=== PATIENT | female | born 1950 | race Caucasian/White ===

== ENCOUNTER 2016-12-20 09:06 | Emergency (ER) | payer MEDICARE, BC ==
[2016-12-20 09:28] VITALS: BP 121/68
--- NOTE | 2016-12-20 09:49 | ERNOTE ---
Medical Problem HPI - General Chief Complaint: General Assessment Time Seen by Provider: 12/20/16 09:32 Source: patient - Immun/Allergies/Home Medications Immunizations: IMMUNIZATION HX Immunizations Up to Date Yes History of Influenza Vaccine No Hx Pneumococcal Vaccination No Allergies/Adverse Reactions: Allergies codeine Allergy (Verified 12/20/16 09:28) penicillin G Allergy (Verified 12/20/16 09:28) Home Medications: HOME MEDICATIONS Dextroamphetamine/Amphetamine [Adderall 10 mg Tablet] 10 mg PO DAILY 08/02/16 [ Last Taken Unknown] Gabapentin 300 mg PO DAILY 08/02/16 [Last Taken Unknown] Gabapentin [Neurontin] 600 mg PO HS 08/02/16 [Last Taken Unknown] Vancomycin HCl [Vancomycin] 10 ml PO QID #560 ml 08/02/16 [Last Taken Unknown] Zolpidem Tartrate [Ambien] 10 mg PO HS PRN 08/02/16 [Last Taken Unknown] clonazePAM [Klonopin] 0.5 mg PO BID 08/02/16 [Last Taken Unknown] - History of Present History Narrative: Patient has a known history of chronic C. difficile infection. She has had 2 fecal implants in the past to try to correct his bacterial balance in her colon. She was started back on antibiotics for a urinary tract infection and started to develop diarrhea again. She is here for variety of tests to make sure that she does not have a C. difficile infection. Timing: constant Severity: mild Modifying Factors - (Worsens): Present: other - antibiotics Review of Systems - Review of Systems Constitutional: Present: See HPI EYE: Present: no symptoms reported ENT: Present: no symptoms reported Respiratory: Present: no symptoms reported Cardiology: Present: no symptoms reported Gastrointestinal/Abdominal: Present: diarrhea Genitourinary: Present: no symptoms reported Musculoskeletal: Present: no symptoms reported Skin: Present: no symptoms reported Neurological: Present: no symptoms reported Endocrine: Present: no symptoms reported Hematologic/Lymphatic: Present: no symptoms reported Psych: Present: no symptoms reported - Patient's Past Medical History Patient History - Medical: Anxiety, Other - resistant c. diff Patient History - Cardiac/Respiratory: No pertinent hx Patient History - Cancer: Other Patient History - Surgical Procedures: Hysterectomy, T & A, Other Patient History - Other: None - Social History Living Situations: alone Abuse History: No History of abuse Psych History: Hx of Anxiety Smoking Status: Never smoker Do you dip or chew tobacco: No Alcohol Use: none Drug Use: none - Immunizations Immunizations Up to Date: Yes Hx Pneumococcal Vaccination: No History of Influenza Vaccine: No Physical Exam - Physical Exam General Appearance: Present: wd/wn, alert, no apparent distress Eye Exam: Normal inspection: bilateral, PERRL: bilateral Ears, Nose, Throat: Present: normal ENT inspection, H, normal pharynx Neck: Present: normal inspection, nontender Respiratory: Present: no respiratory distress, normal breath sounds, no accessory muscle use, chest nontender, lungs clear Cardiovascular/Chest: Present: regular rate, rhythm, no murmur, normal peripheral pulses Gastrointestinal/Abdominal: Present: normal bowel sounds, nontender, nondistended, soft, no organomegaly Rectal Exam: Present: deferred Back Exam: Present: normal inspection, normal range of motion Extremity Exam: Present: normal inspection, non-tender, no edema, normal range of motion Neurological Exam: Present: alert, oriented, normal mood/affect Skin Exam: Present: normal color, warm/dry Lymphatic Exam: Present: no adenopathy ED Progress - Results and Orders Patient's Lab Results:: I have reviewed the patient's lab results. - Vital Signs Patient's Vital Signs:: I have reviewed the patient's vital signs. Vital Signs: Vital Signs 12/20/16 09:20 Temperature 37.0 C Pulse Rate 98 Respiratory 15 Rate Blood Pressure 121/68 O2 Sat by Pulse 100 Oximetry - Progress/Reassessment Chief Complaint: General Assessment Progress:: Unchanged Departure - Departure Clinical Impression: Diarrhea Qualifiers: Diarrhea type: unspecified type Qualified Code(s): R19.7 - Diarrhea, unspecified Instructions: Chronic Diarrhea Referrals: Mervat Summers, [employer] [Primary Care Provider] -
--- OUTSIDE RECORDS SUMMARY | 2016-12-20 09:54 | XMS REPORT | Continuity of Care Document ---
:1950 Author Organization [facility] [place] [address] Care Team Providers Name Role Phone Unavailable Primary Care Provider Unavailable Source Comments This disclosure is being made pursuant to the [employer] program and maynot contain all information available regarding this patient.[facility] Active Allergies and Adverse Reactions Not on File Current Medications Be aware that medications may not be up to date as of this document. Alwaysverify current medications with the patient. Not on file Active Problems Not on file Social History Tobacco Use Types Packs/Day Years Used Date Never Assessed Plan of Care Health Maintenance Due Date Last Done Comments Retired-Pertussis Vaccine Adult 1969 Retired-Tetanus Vaccine Adult 1969 Mammogram 1990 Colonoscopy 2000 Well Adult Visit 2000 Zoster Vaccine 60+ 2010 Bone Density 2015 Retired-Pneumococcal 23 Vaccine-65+ yo 2015 Retired-INFLUENZA VACCINE 05/14/2015 Results from Last 3 Months Not on file
--- OUTSIDE RECORDS SUMMARY | 2016-12-20 09:54 | XMS REPORT | Continuity of Care Document ---
:1950 Author Organization [facility] ([facility]) Address [address] [place] [address] Phone [phone] Care Team Providers Name Role Phone Mervat Summers Primary Care Provider [phone] Source Comments This disclosure is being made pursuant to the Care Everywhere program, applicable federal and state laws, and may not contain all informaitonavailable regarding this patient.[facility] ([facility]) Active Allergies and Adverse Reactions Allergen Noted Date Severity Reactions Comments Codeine Dizziness Penicillins 03/10/2010 Rash Current Medications Prescription Sig. Disp. Refills Start Date End Date Status estradiol (ESTRACE) insert 1 42.5 g 11 01/18/2014 Active 0.01 % vaginal cream Applicatorful vaginally every 48 hours. Indications: ATROPHIC VAGINITIS ASSOCIATED WITH MENOPAUSE silver sulfADIAZINE 1 apply topically at 30 g 1 2014 Active % cream bedtime. Indications: vaginitis history and vulvar erythema clonazePAM 0.5 mg Take 0.5 mg by mouth Active tablet at bedtime. OTHER Progesterone oil Active vaginally, twice per week gabapentin 300 mg Take 1 Cap by mouth 3 270 Cap 2 10/31/2014 Active capsule times daily. Indications: NEUROPATHIC PAIN dextroamphetamine-amp Take 30 mg by mouth Active hetamine (ADDERALL) daily. 30 mg tablet traMADol 50 mg tablet Take 50 mg by mouth 4 Active times daily as needed. omeprazole 20 mg XR Take 20 mg by mouth Active tablet daily. lactobacillus Take 1 capsule by Active rhamnosus (gg) mouth daily. 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 (Primary Dx) 11/05/2016 Telephone Med Ez Clark, Disease 10/23/2016 Office Visit Med Ez Clark, Dx: 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 (Primary Dx) Social History Tobacco Use Types Packs/Day Years Used Date Never Smoker Smokeless Tobacco: Never Used Alcohol Use Drinks/Week oz/Week Comments Yes 2 Glasses of wine 2 Cans of beer Last Filed Vital Signs Vital Sign Reading Time Taken Blood Pressure 146/87 11/20/2016 11:23 AM VAMP MAKER Pulse 97 11/20/2016 11:23 AM VAMP MAKER Temperature 36.9 C (98.4 F) 11/20/2016 11:23 AM VAMP MAKER Respiratory Rate 16 11/20/2016 11:23 AM VAMP MAKER Height 1.473 m (4' 10") 10/23/2016 2:52 PM VAMP MAKER Weight 50.803 kg (112 lb) 10/23/2016 2:52 PM VAMP MAKER Body Mass Index 23.41 10/23/2016 2:52 PM VAMP MAKER Oxygen Saturation 97% 04/21/2011 3:30 PM CDT Plan of Care Health Maintenance Due Date Last Done Comments HCV Screening 1950 Hepatitis B Vaccine (1 of 3 - Primary Series) 1950 Tdap Vaccine 1961 Lipid Disorder Screening 1968 Td Vaccine 1968 Mammogram 1990 Colonoscopy 03/05/2000 Zoster Vaccine 2010 Osteoporosis Screening (DXA Bone Density) 2015 Pneumococcal Vaccine (1 of 2 - PCV13) 2015 Influenza Vaccine: Seasonal Completed Procedures from Last 3 Months Procedure Name Priority Date/Time Associated Diagnosis Comments ABSTRACTED BY Routine 11/25/2016 1:26 Recurrent colitis Results for this BILLING STAFF - NW PM CDT due to Clostridium procedure are in difficile the results section. ABSTRACTED BY Routine 10/23/2016 3:40 Recurrent colitis Results for this BILLING STAFF - NW PM VAMP MAKER due to Clostridium procedure are in difficile the results section. Results from Last 3 Months OTHER PROCEDURE (11/25/2016 1:26 PM) Ez Gonzales MD 11/25/20161:26 PM Procedure Note Fecal Microbiota Transplant Procedure:Fecal Microbiota Transplantation Indication: Recurrent Clostridium difficile colitis Stool donor:[employer] specimen #[id number] Referring Provider: Jose Javier MD 66 year old woman with recurrent C. difficile colitis, resulting in 1 hospitalization. She underwent fecal transplantation on 10/23/16, but was hospitalized again ~1 week later for C. difficile infection. In preparation for the procedure, vancomycin was discontinued yesterday and the patient took omeprazole 20 mg last night and again this morning. After written informed consent was obtained from the patient by me, the right naris was anesthetized with 1.5 mL 4% lidocaine with 1% phenylephrine. A Kangaroo Feeding Tube with Integrated Real-Time Imaging Technology was then placed by me. The stomach rugae were visualized (image uploaded). I injected 30 cc of donor stool solution into the tube, followed by 25 cc of water. The tube was then removed. The patient tolerated the procedure well. The patient will call me with any problems and with a progress report in one week. Post-procedure instructions were provided to the patient. Ez Espitia MD, MPH, [facility] Clinical Professor of Internal Medicine, Division of Infectious Diseases ? ? [email or web address] OTHER PROCEDURE (10/23/2016 3:40 PM) Ez Gonzales MD 10/23/20163:40 PM Procedure Note Fecal Microbiota Transplant Procedure:Fecal Microbiota Transplantation Indication:Recurrent Clostridium difficile colitis Stool donor:[employer] specimen #[id number] Referring Provider: 66 year old woman with recurrent C. difficile colitis, resulting in 1 hospitalization. In preparation for the procedure, vancomycin was discontinued yesterday and the patient took omeprazole 20 mg last night and again this morning. After written informed consent was obtained from the patient by me, the right naris was anesthetized with 1.5 mL 4% lidocaine with 1% phenylephrine. A Kangaroo Feeding Tube with Integrated Real-Time Imaging Technology was then placed by me. The stomach rugae were visualized (image uploaded). I injected 30 cc of donor stool solution into the tube, followed by 25 cc of water. The tube was then removed. The patient tolerated the procedure well. The patient will call me with any problems and with a progress report in one week. Post-procedure instructions were provided to the patient. Ez Espitia MD, MPH, [facility] Clinical Professor of Internal Medicine, Division of Infectious Diseases [id number] [id number]?[email or web address]? [email or web address]
[2016-12-20 09:56] LABS: Hematocrit 35.6 % (37.0-47.0); Hemoglobin 11.1 gm/dL (12.5-16.0); Mean Cell Volume 93.2 fl (78-100); Mean Corpuscular Hemoglobin 29.1 pg (27-31); Mean Corpuscular Hgb Conc 31.2 g/dl (32-36); Mean Platelet Volume 8.1 fl (6.0-9.5); Neutrophil # 1.2 K/mm3 (1.3-6.0); Neutrophil % 37.6 % (42-75.0); Platelet Count 283 K/mm3 (150-450); Red Blood Count 3.82 M/mm3 (4.2-5.4); Red Cell Distribution Width 14.4 % (11.5-14.0); White Blood Count 3.3 K/mm3 (4.0-10.5)
[2016-12-20 10:09] LABS: Albumin * 3.7 gm/dl (3.4-5.0); Anion Gap 11.1 mmol/L (6.8-13.8); BUN/Creatinine Ratio 16.3 (9.0-21.6); Bilirubin, Total 0.2 mg/dL (0.0-1.1); Calcium * 9.1 mg/dL (7.9-10.9); Carbon Dioxide 29.6 mmol/L (24-32.6); Magnesium 1.8 mg/dL (1.2-2.8); Potassium 3.7 mmol/L (3.4-4.6); Total Protein 7.1 gm/dL (6.2-8.2)
[2016-12-20 10:49] LABS: Urine Bilirubin Negative (NEGATIVE); Urine Blood Negative /ul (NEGATIVE); Urine Ketone Negative (NEGATIVE); Urine Nitrite Negative (NEGATIVE); Urine Protein Negative (NEGATIVE); Urine Specific Gravity 1.025 SP.GR. (1.005-1.010); Urine Urobilinogen Normal (NORMAL)
[2016-12-20 10:58] LABS: Urine Appearance Clear; Urine Bacteria TRACE; Urine Color Yellow; Urine RBC TRACE /hpf (0-5); Urine Renal Epithelial Cell Few - 1+ /hpf
== END 2016-12-20 11:24 | disposition home or self-care (01) ==
LOC: ER 09:06
DX: R19.7 Diarrhea, unspecified (principal); Z86.19 Personal history of other infectious and parasitic diseases

== ENCOUNTER 2017-02-11 12:35 | Emergency (ER) | payer MEDICARE, BC ==
--- NOTE | 2017-02-11 14:36 | ERNOTE ---
Medical Problem HPI - Narrative Date of Service: 02/11/17 - General Chief Complaint: General Assessment Time Seen by Provider: 02/11/17 14:21 Source: patient, RN notes reviewed Exam Limitations: no limitations - Immun/Allergies/Home Medications Immunizations: IMMUNIZATION HX Immunizations Up to Date Yes History of Influenza Vaccine No Hx Pneumococcal Vaccination No Allergies/Adverse Reactions: Allergies codeine Allergy (Verified 02/11/17 13:02) penicillin G Allergy (Verified 02/11/17 13:02) Home Medications: HOME MEDICATIONS Dextroamphetamine/Amphetamine [Adderall 10 mg Tablet] 10 mg PO DAILY 08/02/16 [ Last Taken Unknown] Gabapentin 300 mg PO DAILY 08/02/16 [Last Taken Unknown] Gabapentin [Neurontin] 600 mg PO HS 08/02/16 [Last Taken Unknown] Vancomycin HCl [Vancomycin] 10 ml PO QID #560 ml 08/02/16 [Last Taken Unknown] Zolpidem Tartrate [Ambien] 10 mg PO HS PRN 08/02/16 [Last Taken Unknown] clonazePAM [Klonopin] 0.5 mg PO BID 08/02/16 [Last Taken Unknown] - History of Present History Narrative: Is a 66-year-old female patient who presents to the emergency department to be tested for C. difficile. Her illness began last fall and she has been treated multiple times at several different facilities for this. She was seen at [facility] 2 weeks ago. She also saw her primary care provider yesterday and had blood work done. She reports having a loose stool around noon today at home. She became concerned that she has infection again and presented here for testing. She has a stool sample with her that is a soft, formed, brown stool. Review of Systems - Review of Systems Constitutional: Present: no symptoms reported EYE: Present: no symptoms reported ENT: Present: no symptoms reported Respiratory: Present: no symptoms reported Cardiology: Present: no symptoms reported Gastrointestinal/Abdominal: Present: See HPI Genitourinary: Present: no symptoms reported Musculoskeletal: Present: no symptoms reported Skin: Present: no symptoms reported Neurological: Present: no symptoms reported Endocrine: Present: no symptoms reported - Patient's Past Medical History Patient History - Medical: Anxiety, Other Patient History - Cardiac/Respiratory: No pertinent hx Patient History - Cancer: Other Patient History - Surgical Procedures: Hysterectomy, T & A, Other Patient History - Other: None LMP (females 10-50): Menopausal - Social History Living Situations: alone Abuse History: No History of abuse Psych History: Hx of Anxiety Alcohol Use: none Drug Use: none - Immunizations Immunizations Up to Date: Yes Hx Pneumococcal Vaccination: No History of Influenza Vaccine: No Physical Exam - Physical Exam General Appearance: Present: wd/wn, alert, no apparent distress, anxious Respiratory: Present: no respiratory distress, no accessory muscle use Neurological Exam: Present: alert, oriented, normal mood/affect, no motor/ sensory deficits Skin Exam: Present: normal color, warm/dry ED Progress - Vital Signs Patient's Vital Signs:: I have reviewed the patient's vital signs. Vital Signs: Vital Signs 02/11/17 12:48 Temperature 37.5 C Pulse Rate 112 H Respiratory 16 Rate Blood Pressure 124/74 O2 Sat by Pulse 95 Oximetry - Progress/Reassessment Chief Complaint: General Assessment Progress:: Unchanged Plan - Plan Plan: Discussed with patient that her current stool specimen cannot be tested for C. difficile as it is a formed stool. I also recommended contacting the [facility] if she is having ongoing problems as this is the place where she was most recently treated. I didn't want her that she could obtain an outpatient order for testing from her primary care provider if she needed to do rather than coming to the emergency department. Departure - Departure Clinical Impression: Feared condition not demonstrated Disposition: Home Follow Up Needed Condition: Good Additional Instructions: Follow up as needed for worsening symptoms - consider contacting Mervat for a lab order for CDiff as an outpatient test Referrals: Mervat Summers, [employer] [Primary Care Provider] -
--- OUTSIDE RECORDS SUMMARY | 2017-02-11 14:36 | XMS REPORT | Continuity of Care Document ---
:1950 Author Organization [facility] ([facility]) Address [address] [place] [address] Phone [phone] Care Team Providers Name Role Phone Mervat Summers Primary Care Provider [phone] Source Comments This disclosure is being made pursuant to the Care Everywhere program, applicable federal and state laws, and may not contain all informaitonavailable regarding this patient.[facility] ([facility]) Active Allergies and Adverse Reactions Allergen Noted [...] Recent Encounters Date Type Specialty Providers Description 01/29/2017 Office Visit Ez Dc, Subj: Appointment Disease Canceled 12/29/2016 Telephone Med Ez Clark, Chief Comp: Disease MD Medication Question 11/27/2016 Telephone Med Ez Clark, Chief Comp: [...] Taken Blood Pressure 146/87 11/20/2016 11:23 AM COAL CUTTING MACHINE OPERATOR Pulse 97 11/20/2016 11:23 AM COAL CUTTING MACHINE OPERATOR Temperature 36.9 C (98.4 F) 11/20/2016 11:23 AM COAL CUTTING MACHINE OPERATOR Respiratory Rate 16 11/20/2016 11:23 AM COAL CUTTING MACHINE OPERATOR Height 1.473 m (4' 10") 10/23/2016 2:52 PM COAL CUTTING MACHINE OPERATOR Weight 50.803 kg (112 lb) 10/23/2016 2:52 PM COAL CUTTING MACHINE OPERATOR Body Mass Index 23.41 10/23/2016 2:52 PM COAL CUTTING MACHINE OPERATOR Oxygen Saturation 97% 04/21/2011 3:30 PM CDT [...] 2 - PCV13) 2015 Influenza Vaccine: Seasonal (Season Ended) 2017 Procedures from Last 3 Months Procedure Name [...] Recurrent Clostridium difficile colitis Stool donor:[employer] specimen #[id number] Referring Provider: Jose Javier MD 66 year [...] to the patient. Ez Espitia MD, MPH, [facility] Clinical Professor of Internal Medicine, Division of Infectious Diseases ? ? [email or web address]
--- OUTSIDE RECORDS SUMMARY | 2017-02-11 14:36 | XMS REPORT | Continuity of Care Document ---
:1950 Author Organization [facility] [place] [address] Care Team Providers Name Role Phone Unavailable Primary Care Provider Unavailable Source Comments This disclosure is being made pursuant to the [employer] program and maynot contain all information available regarding this patient.[facility] Active Allergies and Adverse Reactions Not on [...]
[2017-02-11 14:39] VITALS: BP 110/77
== END 2017-02-11 14:40 | disposition home or self-care (01) ==
LOC: ER 12:35
DX: Z03.89 Encounter for observation for other suspected diseases and conditions ruled out (principal)

== ENCOUNTER 2017-04-15 07:38 | Day surgery (SDC) | payer MEDICARE, BC ==
[~2017-04-15 07:38] MED LIST: LACTULOSE 10 G/15 ML BTL PO SCH
--- OUTSIDE RECORDS SUMMARY | 2017-04-15 07:42 | XMS REPORT | Clinical Summary ---
:1950 Author Organization [facility] [place] [address] Care Team Providers Name Role Phone Unavailable Primary Care Provider Unavailable Source Comments This disclosure is being made pursuant to the [employer] program and maynot contain all information available regarding this patient.[facility] Allergies Not on File Current Medications Be aware that medications may not be up to date as of this document. Alwaysverify current medications with the patient. Not on file Active Problems Not on file Social History Tobacco Use Types Packs/Day Years Used Date Never Assessed Sex Assigned at Date Recorded Not on file Last Filed Vital Signs Not on file Plan of Treatment Health Maintenance Due Date Last Done Comments Retired-Pertussis Vaccine Adult 1969 Retired-Tetanus Vaccine Adult 1969 Mammogram 1990 Colonoscopy 2000 Well Adult Visit 2000 Zoster Vaccine 60+ 2010 Bone Density 2015 Retired-Pneumococcal 23 Vaccine-65+ yo 2015 Retired-INFLUENZA VACCINE 05/14/2015 Results Not on filefrom Last 3 Months
== END 2017-04-15 07:39 | disposition home or self-care (01) ==
LOC: AMB 07:38
PROVIDERS: ATTEND Psychiatry & Neurology Psychiatry
DX: K27.9 Peptic ulcer, site unspecified, unspecified as acute or chronic, without hemorrhage or perforation (principal)

== ENCOUNTER 2017-04-22 15:01 | Emergency (ER) | payer MEDICARE, BC ==
[2017-04-22] MEDS ORDERED: NALBUPHINE HCL 20 MG/ML AMPUL IM ONE (15:08)
[2017-04-22] MEDS ORDERED: NALBUPHINE HCL 20 MG/ML AMPUL ONE (15:13)
--- OUTSIDE RECORDS SUMMARY | 2017-04-22 15:19 | XMS REPORT | Clinical Summary ---
:1950 Author Organization [facility] [place] [address] Care Team Providers Name Role Phone Unavailable Primary Care Provider Unavailable Source Comments This disclosure is being made pursuant to the [employer] program and maynot contain all information available regarding this patient.[facility] Allergies Not on File Current Medications Be [...]
--- NOTE | 2017-04-22 15:37 | ERNOTE ---
Lower Extremity HPI - Narrative Date of Service: 04/22/17 - General Lower Extremities Pain: foot: right Time Seen by Provider: 04/22/17 15:07 Source: patient Exam Limitations: no limitations - Immun/Allergies/Home Medications Immunizations: IMMUNIZATION HX Immunizations Up to Date Yes History of Influenza Vaccine No Hx Pneumococcal Vaccination No Allergies/Adverse Reactions: Allergies Allergy/AdvReac Type Severity Reaction Status Date / Time codeine Allergy Verified 04/22/17 15:10 penicillin G Allergy Verified 04/22/17 15:10 Home Medications: HOME MEDICATIONS Dextroamphetamine/Amphetamine [Adderall 10 mg Tablet] 10 mg PO DAILY 08/02/16 [ Last Taken Unknown] Gabapentin 300 mg PO DAILY 08/02/16 [Last Taken Unknown] Gabapentin [Neurontin] 600 mg PO HS 08/02/16 [Last Taken Unknown] Zolpidem Tartrate [Ambien] 10 mg PO HS PRN 08/02/16 [Last Taken Unknown] clonazePAM [Klonopin] 0.5 mg PO BID 08/02/16 [Last Taken Unknown] - History of Present Illness Narrative: Pt. comes in with c/o R foot pain after she slipped off of a stair at her house and landed wrong on her foot at 0900. Pt. denies any SOB, CP, NVD, fever, recent illness, alleviating factor but does state that she has a previous injury of this foot and has internal fixators. Pt. states that she had taken her scheduled pain medications and iced her foot without any relief. Review of Systems - Review of Systems Constitutional: Present: no symptoms reported. Absent: recent illness, fever, chills, weakness, fatigue, malaise EYE: Present: no symptoms reported ENT: Present: no symptoms reported Respiratory: Present: no symptoms reported. Absent: shortness of breath, cough , wheezing Cardiology: Present: no symptoms reported. Absent: chest pain, palpitations, edema Musculoskeletal: Present: joint pain - R volar foot. Absent: back pain Skin: Present: no symptoms reported Neurological: Present: no symptoms reported. Absent: headache, dizziness/light- headedness, numbness, tingling All Other Systems: All systems neg except as marked - Patient's Past Medical History Patient History - Medical: Anxiety Patient History - Cardiac/Respiratory: No pertinent hx Patient History - Cancer: Other Patient History - Surgical Procedures: Hysterectomy, T & A, Other Patient History - Other: None - Social History Living Situations: home Abuse History: No History of abuse Psych History: Hx of Anxiety Do you dip or chew tobacco: Yes Alcohol Use: none Drug Use: none - Immunizations Immunizations Up to Date: Yes Hx Pneumococcal Vaccination: No History of Influenza Vaccine: No Physical Exam - Physical Exam General Appearance: Present: wd/wn, alert, no apparent distress Head Exam: Present: normal inspection, no evidence of injury Eye Exam: Normal inspection: bilateral, PERRL: bilateral, EOMI: bilateral Neck: Present: normal inspection, nontender. Absent: lymphadenopathy (R), lymphadenopathy (L) Respiratory: Present: no respiratory distress, normal breath sounds, no accessory muscle use, chest nontender, lungs clear Cardiovascular/Chest: Present: regular rate, rhythm, no murmur, normal peripheral pulses Back Exam: Present: normal inspection Extremity Exam: Present: normal inspection, normal range of motion, pedal edema , other - tenderness volar foot Neurological Exam: Present: alert, oriented, normal mood/affect, no motor/ sensory deficits, infection control practitioner II-XII nml as tested, normal cerebellar test Skin Exam: Present: normal color, warm/dry. Absent: pallor, skin rash ED Progress - Vital Signs Patient's Vital Signs:: I have reviewed the patient's vital signs. Vital Signs: Vital Signs 04/22/17 15:07 Temperature 37.5 C Pulse Rate 97 Respiratory 12 Rate Blood Pressure 147/78 O2 Sat by Pulse 99 Oximetry - X-Ray X-Ray #1 X-Ray: foot Interpretation: Reviewed by me X-ray Comments: no acute osseous abnormalities - Progress/Reassessment Chief Complaint: Ankle Injury/ Pain Departure Clinical Impression: Foot sprain Qualifiers: Encounter type: initial encounter Laterality: right Qualified Code(s): S93.601A - Unspecified sprain of right foot, initial encounter - Departure Disposition: Home self-care Condition: Good Instructions: Foot Sprain Additional Instructions: Please follow up with primary provider in 2-3 days if not improved. May take tylenol for pain if needed. May use crutches for walking if unable to bear weight without pain. Referrals: Mervat Summers, [employer] [Primary Care Provider] -
[2017-04-23 16:31] VITALS: BP 135/76
== END 2017-04-22 16:19 | disposition home or self-care (01) ==
LOC: ER 15:01
DX: S93.601A Unspecified sprain of right foot, initial encounter (principal); X58.XXXA Exposure to other specified factors, initial encounter; Y93.89 Activity, other specified; Y92.008 Other place in unspecified non-institutional (private) residence as the place of occurrence of the external cause; F17.200 Nicotine dependence, unspecified, uncomplicated

== ENCOUNTER 2017-05-28 00:17 | Emergency (ER) | payer MEDICARE, BC ==
[2017-05-28] MEDS ORDERED: TETRACAINE HCL 150 DROP BTL EACHEYE ONE (01:09)
[2017-05-28] MEDS ORDERED: TETRACAINE HCL 150 DROP BTL ONE (01:09)
--- NOTE | 2017-05-28 01:21 | ERNOTE ---
ENT HPI Presenting Symptoms: eye pain Time Seen by Provider: 05/28/17 01:04 Source: patient Exam Limitations: no limitations - Immun/Allergies/Home Medications Immunizations: IMMUNIZATION HX Immunizations Up to Date Yes History of Influenza Vaccine No Hx Pneumococcal Vaccination No Allergies/Adverse Reactions: Allergies Allergy/AdvReac Type Severity Reaction Status Date / Time codeine Allergy Verified 04/22/17 15:10 penicillin G Allergy Verified 04/22/17 15:10 Home Medications: HOME MEDICATIONS Dextroamphetamine/Amphetamine [Adderall 10 mg Tablet] 10 mg PO DAILY 08/02/16 [ Last Taken Unknown] Gabapentin 300 mg PO DAILY 08/02/16 [Last Taken Unknown] Gabapentin [Neurontin] 600 mg PO HS 08/02/16 [Last Taken Unknown] Zolpidem Tartrate [Ambien] 10 mg PO HS PRN 08/02/16 [Last Taken Unknown] clonazePAM [Klonopin] 0.5 mg PO BID 08/02/16 [Last Taken Unknown] Dextroamphetamine/Amphetamine [Adderall 30 mg Tablet] 30 mg PO DAILY 05/28/17 [ Last Taken Unknown] - History of Present Illness Narrative: Pt has lice and was using nix shampoo on her hair. She got some in her eye and her eye became red and painful. She called poison control Severity: Present: moderate ENT Location: Present: eye (L) Prearrival Treatment: Present: flushing eys Associated Symptoms - ENT: Reports: denies symptoms Review of Systems - Review of Systems Constitutional: Absent: recent illness EYE: Present: see HPI, blurred vision ENT: Absent: nose congestion, nasal drainage Genitourinary: Present: no symptoms reported Musculoskeletal: Present: no symptoms reported Skin: Absent: rash, change in color Neurological: Present: no symptoms reported Endocrine: Present: no symptoms reported Hematologic/Lymphatic: Present: no symptoms reported Psych: Present: no symptoms reported - Patient's Past Medical History Patient History - Medical: Anxiety Patient History - Cardiac/Respiratory: No pertinent hx Patient History - Cancer: Other Patient History - Surgical Procedures: Hysterectomy, T & A, Other Patient History - Other: None - Social History Living Situations: home Abuse History: No History of abuse Psych History: Hx of Anxiety Smoking Status: Never smoker Alcohol Use: none Drug Use: none - Immunizations Immunizations Up to Date: Yes Hx Pneumococcal Vaccination: No History of Influenza Vaccine: No Physical Exam - Physical Exam General Appearance: Present: wd/wn, alert, no apparent distress Head Exam: Present: normal inspection, no evidence of injury Eye Exam: Sclera injection: left, Eye drainage: left Ears, Nose, Throat: Present: normal ENT inspection Neck: Present: normal inspection, nontender Respiratory: Present: no respiratory distress, no accessory muscle use Back Exam: Present: normal inspection, normal range of motion Extremity Exam: Present: normal inspection, normal range of motion Neurological Exam: Present: alert, oriented, normal mood/affect, no motor/ sensory deficits Skin Exam: Present: normal color, warm/dry ED Progress - Results and Orders Patient's Lab Results:: I have reviewed the patient's lab results. - Vital Signs Vital Signs: Vital Signs 05/28/17 00:27 Temperature 36.7 C Pulse Rate 92 Respiratory 18 Rate Blood Pressure 148/87 O2 Sat by Pulse 96 Oximetry - Progress/Reassessment Chief Complaint: Eye Injury/Trauma Procedures Eye Location: left eye Tetracaine Drops Administered: Yes Eye - Cornea: Left: examined w/fluorescein, fluorescein dye uptake - irregular area over central cornea Antibiotic Ointment/Drps Admin: left eye Complications: Pt richard procedure well Departure Clinical Impression: Corneal chemical burn Qualifiers: Encounter type: initial encounter Laterality: left Qualified Code(s): T26.62XA - Corrosion of cornea and conjunctival sac, left eye, initial encounter - Departure Disposition: Home Follow Up Needed Condition: Good Instructions: Corneal Abrasion, [id number] Additional Instructions: Make an appointment with an neckties painter to follow up on your eye as soon as possible. Use eye drops until you see ophthalmology and they decide when to stop Referrals: Mervat Summers, OIL SEPARATOR [Primary Care Provider] -
[2017-05-28] MEDS ORDERED: NEOMY SULF/POLYMYX B SULF/HC 75 DROP BTL EACHEYE ONE (02:33)
[2017-05-28] MEDS ORDERED: NEOMYCIN/POLYMYXIN B/DEXAMETHA 3.5 APPL TUBE ONE (02:40)
[2017-05-28] MEDS ORDERED: diphenhydrAMINE HCL 25 MG CAPSULE ONE (02:43)
[2017-05-28] MEDS ORDERED: diphenhydrAMINE HCL 25 MG CAPSULE PO ONE (02:44)
[2017-05-28] MEDS ORDERED: NEOMY SULF/POLYMYX B SULF/HC 75 DROP BTL ONE (02:49)
[2017-05-28 03:19] VITALS: BP 187/80
== END 2017-05-28 02:55 | disposition home or self-care (01) ==
LOC: ER 00:17
DX: T26.62XA Corrosion of cornea and conjunctival sac, left eye, initial encounter (principal); Y93.E8 Activity, other personal hygiene

== ENCOUNTER 2017-06-23 15:08 | Inpatient (IN) | payer MEDICARE, BC ==
[2017-06-23] MEDS ORDERED: NORMAL SALINE 1,000 ML IV ONE ×2 (16:05→18:02)
[2017-06-23 16:33] LABS: Hematocrit 31.2 % (37.0-47.0); Hemoglobin 10.8 gm/dL (12.5-16.0); Mean Cell Volume 83.6 fl (78-100); Mean Corpuscular Hgb Conc 34.6 g/dl (32-36); Mean Platelet Volume 8.6 fl (6.0-9.5); Neutrophil # 11.8 K/mm3 (1.3-6.0); Neutrophil % 83.3 % (42-75.0); Platelet Count 259 K/mm3 (150-450); Red Blood Count 3.73 M/mm3 (4.2-5.4); Red Cell Distribution Width 12.8 % (11.5-14.0); White Blood Count 14.2 K/mm3 (4.0-10.5)
--- NOTE | 2017-06-23 16:51 | ERNOTE ---
Medical Problem HPI - General Chief Complaint: General Assessment Time Seen by Provider: 06/23/17 15:47 Source: patient Exam Limitations: no limitations - Immun/Allergies/Home Medications Immunizations: IMMUNIZATION HX Immunizations Up to Date Yes History of Influenza Vaccine No Hx Pneumococcal Vaccination Yes Allergies/Adverse Reactions: Allergies codeine Allergy (Verified 04/22/17 15:10) penicillin G Allergy (Verified 04/22/17 15:10) Home Medications: HOME MEDICATIONS Dextroamphetamine/Amphetamine [Adderall 10 mg Tablet] 10 mg PO DAILY 08/02/16 [ Last Taken Unknown] Gabapentin 300 mg PO DAILY 08/02/16 [Last Taken Unknown] Gabapentin [Neurontin] 600 mg PO HS 08/02/16 [Last Taken Unknown] Zolpidem Tartrate [Ambien] 10 mg PO HS PRN 08/02/16 [Last Taken Unknown] clonazePAM [Klonopin] 0.5 mg PO BID 08/02/16 [Last Taken Unknown] Dextroamphetamine/Amphetamine [Adderall 30 mg Tablet] 30 mg PO DAILY 05/28/17 [ Last Taken Unknown] - History of Present History Narrative: Patient states that she has been having flulike symptoms for the past week and that her oral intake has been very poor over that period. Patient is not entirely sure what happened but she was feeling overall tired and feels that she likely either passed out or tripped and bumped her head and injured her right hand. Patient states that she has been having some fairly extensive diarrhea and is on oral vancomycin because of a previous history of C. 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 approximately 6 months ago. Timing: other - the hand pain and bruising around the fifth metacarpal and fifth digit is persistent however her flulike symptoms and feel improved Review of Systems - Review of Systems Constitutional: Present: See HPI, weakness EYE: Present: no symptoms reported ENT: Present: no symptoms reported Respiratory: Present: no symptoms reported Cardiology: Present: no symptoms reported Gastrointestinal/Abdominal: Present: no symptoms reported Genitourinary: Present: no symptoms reported Musculoskeletal: Present: See HPI Skin: Present: no symptoms reported Neurological: Present: no symptoms reported Endocrine: Present: no symptoms reported Hematologic/Lymphatic: Present: no symptoms reported Psych: Present: no symptoms reported - Patient's Past Medical History Patient History - Medical: Anxiety, Other Patient History - Cardiac/Respiratory: No pertinent hx Patient History - Cancer: Other Patient History - Surgical Procedures: Hysterectomy, T & A, Other Patient History - Other: None LMP (females 10-50): Menopausal - Social History Living Situations: alone Abuse History: No History of abuse Psych History: Hx of Anxiety, Current tx/ever been on anti-depressants or anti- anxiety meds Smoking Status: Never smoker Alcohol Use: none Drug Use: none - Immunizations Immunizations Up to Date: Yes Hx Pneumococcal Vaccination: Yes History of Influenza Vaccine: No Physical Exam - Physical Exam General Appearance: Present: wd/wn, alert, mild distress Eye Exam: Normal inspection: bilateral, PERRL: bilateral Ears, Nose, Throat: Present: dry mucous membranes Neck: Present: normal inspection, nontender Respiratory: Present: no respiratory distress, normal breath sounds, no accessory muscle use, chest nontender, lungs clear Cardiovascular/Chest: Present: regular rate, rhythm, no murmur, normal peripheral pulses Gastrointestinal/Abdominal: Present: normal bowel sounds, nontender, nondistended, soft, no organomegaly Rectal Exam: Present: deferred Back Exam: Present: normal inspection, normal range of motion Extremity Exam: Present: decreased range of motion, joint swelling, other - ecchymosis around the fifth metacarpal and fifth finger on the right hand Neurological Exam: Present: alert, oriented, normal mood/affect Skin Exam: Present: normal color, warm/dry Lymphatic Exam: Present: no adenopathy ED Progress - Results and Orders Patient's Lab Results:: I have reviewed the patient's lab results. - Vital Signs Patient's Vital Signs:: I have reviewed the patient's vital signs. Vital Signs: Vital Signs 06/23/17 15:33 Temperature 36.6 C Pulse Rate 91 Respiratory 16 Rate Blood Pressure 161/87 O2 Sat by Pulse 99 Oximetry - EKG EKG: NSR EKG read: Reviewed by me - X-Ray X-Ray #1 X-Ray: hand Interpretation: Reviewed by me - Progress/Reassessment Chief Complaint: General Assessment Plan - Plan Plan: I suspect that the syncope is secondary to the hyponatremia which is the Afrin effect of the diarrhea that the patient has been having for a week or more. Patient will need to be admitted for IV fluid for correction of the hyponatremia and hypo-chloremia and patient will ultimately need to have an orthopedic referral for the finger however we will splinted here in the ED. Departure Clinical Impression: Hyponatremia, Syncope and collapse Fracture, finger Qualifiers: Encounter type: initial encounter Finger: little finger Fracture type: closed Phalanx: proximal Fracture alignment: nondisplaced Laterality: right Qualified Code(s): S62.646A - Nondisplaced fracture of proximal phalanx of right little finger, initial encounter for closed fracture - Departure Disposition: [facility] Condition: Fair Referrals: Mervat Summers [employer]PER[employer] [Primary Care Provider] -
[2017-06-23 16:59] LABS: Albumin * 3.1 gm/dl (3.4-5.0); Anion Gap 12.7 mmol/L (6.8-13.8); BUN/Creatinine Ratio 10.3 (9.0-21.6); Bilirubin, Total 0.5 mg/dL (0.0-1.1); Ca. Corrected For Albumin 9.5 mg/dL (8.4-10.2); Calcium * 9.1 mg/dL (7.9-10.9); Magnesium 1.8 mg/dL (1.2-2.8); Potassium 3.7 mmol/L (3.4-4.6); Total Protein 7.5 gm/dL (6.2-8.2)
[2017-06-23] MEDS ORDERED: FLU VACC QS2017-18(6MOS UP)/PF 60 MCG/0.5 ML SYRINGE IM ONE (21:08)
[2017-06-23 21:53] LABS: Urine Bilirubin Negative (NEGATIVE); Urine Blood Negative /ul (NEGATIVE); Urine Ketone 15 mg/dL (NEGATIVE); Urine Nitrite Negative (NEGATIVE); Urine Protein Negative (NEGATIVE); Urine Specific Gravity <=1.005 SP.GR. (1.005-1.010); Urine Urobilinogen Normal (NORMAL)
--- NOTE | 2017-06-23 22:09 | HP ---
Chief Complaint - Chief Complaint Date of Service: 06/23/17 Time of Service: 21:48 Chief Complaint: dizziness, finger pain. History of Present Illness: 67 years old WF adm to the hospital from ER with reports of dizziness, UTI and hand pain. PMH significant for ADHD, chronic back pain,depression, anxiety and hypotension. pt stated a week ago she started treatment for UTI with macrobid. She still have 5 more days dose left, she takes medications concurrently with oral vancomycin for c-diff ( pt had fecal transplant in the past ). In addition to the UTI her back pain was aggravated from lifting a box incorrectly. This morning she felt dizzy and fainted, pt stated she think she had LOC for a few seconds and hit her hand during the fall. In ER WBC 14.2, Na+ 118. Chl 80 and X -Ray hand: Acute displaced oblique [id number] proximal phalanx. She was given IVF bolus in ER, Urinalysis pending. plan of care discussed with pt she verbalized understanding and agrees. - Patient's Past Medical History Patient History - Medical: ADHD, Anxiety - depression, GERD, UTI'S, Other Patient History - Cardiac/Respiratory: No pertinent hx Patient History - Cancer: Cervical, Other Patient History - Surgical Procedures: Hysterectomy, T & A, Other Patient History - Other: None LMP (females 10-50): hysterectomy at 29 - Family History Mother Family History - Cardiac/Respiratory: Hypertension Family History - Cancer: No pertinent family hx Father Family History - Cardiac/Respiratory: Hypertension Family History - Cancer: No pertinent family hx Brother Family History - Cancer: Bladder Sister Family History - Cancer: Lung - Social History Living Situations: home Abuse History: No History of abuse Psych History: Hx of Anxiety, Current tx/ever been on anti-depressants or anti- anxiety meds Smoking Status: Never smoker Have you smoked in the past 12 months: No Alcohol Use: none Drug Use: none - Immunizations Immunizations Up to Date: Yes Hx Pneumococcal Vaccination: Yes History of Influenza Vaccine: No Review Of Systems (GEN) - Review of Systems Generalized/Overall Review: Present: No Symptoms Reported EENTM: Present: Blurred Vision Respiratory: Present: No Symptoms Reported Cardiac: Present: Palpitations, Syncope Abdominal: Present: Nausea Genitourinary: Present: No Symptoms Reported Musculoskeletal: Present: Other - ankle swelling Neurological: Present: No Symptoms Reported Skin: Present: No Symptoms Reported Endocrine: Present: No Symptoms Reported Immunizations: IMMUNIZATION HX Immunizations Up to Date Yes History of Influenza Vaccine No Hx Pneumococcal Vaccination Yes Allergies/Adverse Reactions: Allergies Allergy/AdvReac Type Severity Reaction Status Date / Time codeine Allergy Verified 04/22/17 15:10 penicillin G Allergy Verified 04/22/17 15:10 Home Medications: HOME MEDICATIONS Zolpidem Tartrate [Ambien] 10 mg PO HS PRN 08/02/16 [Last Taken Unknown] Baclofen 10 mg PO HS 06/23/17 [Last Taken Unknown] Cholecalciferol (Vitamin D3) [Vitamin D3] 10,000 unit PO 2XW 06/23/17 [Last Taken Unknown] Dextroamphetamine/Amphetamine [Amphetamine Salts] 30 mg PO BID 06/23/17 [Last Taken Unknown] Iron Heme Polypeptide/Folic AC [Proferrin-Forte Tablet] 180 mg PO DAILY [Last Taken Unknown] Sucralfate [Carafate] 1 gm PO QID 06/23/17 [Last Taken Unknown] Tramadol HCl [Rybix Odt] 1 tab PO PRN 06/23/17 [Last Taken Unknown] Exam - Exam Vital Signs: Vital Signs - Last Taken Temp 36.2 C L 06/23/17 21:00 Pulse 86 06/23/17 21:00 Resp 18 06/23/17 21:00 BP 149/73 06/23/17 20:46 Pulse Ox 98 06/23/17 21:00 Constitutional: Present: Alert, Oriented x3, Cooperative, Well developed, No distress ENT Exam: Present: normal ENT inspection Eye Exam: bilateral eye: normal inspection Neck: Present: non-tender, full range of motion, supple, normal inspection Back Exam: Present: normal inspection, no CVA tenderness Breasts: Present: Exam deferred Respiratory: Present: chest non-tender, lungs clear, normal breath sounds, no respiratory distress Cardiovascular/Chest: Present: normal peripheral pulses, regular rate, rhythm, no chest tenderness, tachycardia, edema - BLLE Peripheral Pulses: dorsalis-pedis (R): 3+, dorsalis-pedis (L): 3+ Abdomen: Present: Normal bowel sounds, soft, nontender, nondistended, no rebound tenderness /Rectal: Present: Exam deferred Extremity: Present: normal range of motion, non-tender, normal inspection, lower extremity edema, pedal edema, slow capillary refill, swelling, other - 5th proximal phalanx fracture Skin Exam: Present: normal color, warm/dry, no cyanosis Lymphatic: Present: no adenopathy Neurologic: Present: oriented x 3 Appearance: Present: appropriate appearance, appropriate insight Eye contact: Present: cooperative, good eye contact Thoughts: Present: normal thought pattern, no apparent hallucination Diagnostic Studies: Laboratory Results WBC 14.2 K/mm3 (4.0-10.5) H 06/23/17 16:20 RBC 3.73 M/mm3 (4.2-5.4) L 06/23/17 16:20 Hgb 10.8 gm/dL (12.5-16.0) L 06/23/17 16:20 Hct 31.2 % (37.0-47.0) L 06/23/17 16:20 MCV 83.6 fl (78-100) 06/23/17 16:20 MCH 29.0 pg (27-31) 06/23/17 16:20 MCHC 34.6 g/dl (32-36) 06/23/17 16:20 RDW 12.8 % (11.5-14.0) 06/23/17 16:20 Plt Count 259 K/mm3 (150-450) 06/23/17 16:20 MPV 8.6 fl (6.0-9.5) 06/23/17 16:20 Immature Gran % (Auto) 1.20 % (0.001-0.429) H 06/23/17 16:20 Immature Gran # (Auto) 0.17 K/mm3 (0.000-0.0310) H 06/23/17 16:20 Neutrophils % 83.3 % (42-75.0) H 06/23/17 16:20 Lymphocytes % 7.2 % (20-51) L 06/23/17 16:20 Monocytes % 8.1 % (0.0-9) 06/23/17 16:20 Eosinophils % 0.1 % (0.0-3.0) 06/23/17 16:20 Basophils % 0.1 % (0.0-1.0) 06/23/17 16:20 Nucleated RBC % 0.0 k/mm3 (0-1) 06/23/17 16:20 Neutrophils # 11.8 K/mm3 (1.3-6.0) H 06/23/17 16:20 Lymphocytes # 1.0 k/mm3 (1.5-3.5) L 06/23/17 16:20 Monocytes # 1.2 k/mm3 (0.0-1.0) H 06/23/17 16:20 Eosinophils # 0.0 k/mm3 (0.0-0.7) 06/23/17 16:20 Absolute Basophils 0.0 k/mm3 (0.0-0.1) 06/23/17 16:20 Sodium 118 mmol/L (132-142) L* D 06/23/17 16:20 Plasma Sodium 118 mmol/L (130-142) L* 06/23/17 16:20 Potassium 3.7 mmol/L (3.4-4.6) 06/23/17 16:20 Chloride 80 mmol/L (97-106) L 06/23/17 16:20 Carbon Dioxide 29.0 mmol/L (24-32.6) 06/23/17 16:20 Anion Gap 12.7 mmol/L (6.8-13.8) 06/23/17 16:20 BUN 7 mg/dL (3-23) 06/23/17 16:20 Creatinine 0.68 mg/dL (0.4-1.4) 06/23/17 16:20 Est GFR (Non-Af Amer) 92 mL/min (60-130) D 06/23/17 16:20 BUN/Creatinine Ratio 10.3 (9.0-21.6) 06/23/17 16:20 Random Glucose 94 mg/dL (70-110) 06/23/17 16:20 Calcium 9.1 mg/dL (7.9-10.9) 06/23/17 16:20 Calcium Adj for Albumin 9.5 mg/dL (8.4-10.2) 06/23/17 16:20 Magnesium 1.8 mg/dL (1.2-2.8) 06/23/17 16:20 Total Bilirubin 0.5 mg/dL (0.0-1.1) 06/23/17 16:20 AST 26 U/L (0-48) 06/23/17 16:20 ALT 39 U/L (19-67) 06/23/17 16:20 Alkaline Phosphatase 112 U/L (50-170) 06/23/17 16:20 Troponin I Less than 0.017 ng/ml (0.00-0.10) 06/23/17 16:20 Total Protein 7.5 gm/dL (6.2-8.2) 06/23/17 16:20 Albumin 3.1 gm/dl (3.4-5.0) L 06/23/17 16:20 Influenza Type A Ag Negative (NEGATIVE) 06/23/17 18:17 Influenza Type B Ag Negative (NEGATIVE) 06/23/17 18:17 X-ray hand: Acute midly displaced pblique fracture 5th proximal phalanx Assessment/Plan - Narrative Narrative: Fractured 5th finger pt stated she fell and might have injured her finger at the time. Seen on X-ray hand: Acute mildly displaced oblique fracture 5th proximal phalanx Splint applied in ER, pt to follow up with ortho Consult ortho Hyponatremia- probable pseudohyponatremia On adm Na+ level 118, pt with reports of dizziness as a result. pt with reports of pitting edema to BLLE Urine specific gravity < 1.005 Free Fluid restriction and monitor sodium Continue with neuro-checks, mag, phos, lipids,TSH pending Syncope- stable likely due to hyponatremia continue to monitor and safety measures while hospitalized UTI_ pt stated she is currently been treated with macrobid and have 5 doses remain. she uses oral vancomycin due to chance of c-diff with macrobid on adm WBC 14.2 continue with home antibiotic C-diff- stable no loose stool May continue with vancomycin while taking macrobid. Chronic conditions stable and continue with home medications ADHD GERD Code status: Full VTE ppx: ambulate and scd GI ppx: Time 40 minutes - Assessment/Plan (1) Fracture, finger Problem: Acute Qualifiers: Encounter type: initial encounter Finger: little finger Fracture type: closed Phalanx: proximal Fracture alignment: nondisplaced Laterality: right Qualified Code(s): S62.646A - Nondisplaced fracture of proximal phalanx of right little finger, initial encounter for closed fracture (2) Hyponatremia Problem: Acute (3) Syncope and collapse Problem: Acute (4) Clostridium difficile colitis Problem: Acute (5) UTI (urinary tract infection) Problem: Acute (6) ADHD Problem: Acute (7) Hypochloremia Problem: Acute
[2017-06-23 22:17] LABS: Urine Appearance Clear; Urine Bacteria TRACE; Urine Color Colorless; Urine RBC None Seen /hpf (0-5); Urine WBC TRACE /hpf (0-5)
[2017-06-23 22:36] LABS: Anion Gap 12.8 mmol/L (6.8-13.8); BUN/Creatinine Ratio 12.1 (9.0-21.6); Calcium * 8.9 mg/dL (7.9-10.9); Carbon Dioxide 28.8 mmol/L (24-32.6); Estimated Creat Clear 53.4; Magnesium 1.9 mg/dL (1.2-2.8); Phosphorus 3.3 mg/dL (2.2-4.2); Potassium 3.6 mmol/L (3.4-4.6); TSH * 0.336 uIU/mL (0.358-3.74)
[2017-06-23] MEDS ORDERED: ZOLPIDEM TARTRATE 10 MG TABLET PO PRN (23:10)
[2017-06-23] MEDS ORDERED: TRAMADOL HCL PO SCH (23:15)
[2017-06-23] MEDS ORDERED: CHOLECALCIFEROL 10000 UNIT PO SCH (23:15)
[2017-06-24] MEDS ORDERED: traMADol HCL 50 MG TABLET PO PRN (00:22)
[2017-06-24 05:53] LABS: Hematocrit 29.3 % (37.0-47.0); Hemoglobin 10.1 gm/dL (12.5-16.0); Mean Cell Volume 84.2 fl (78-100); Mean Corpuscular Hgb Conc 34.5 g/dl (32-36); Mean Platelet Volume 8.6 fl (6.0-9.5); Neutrophil # 12.1 K/mm3 (1.3-6.0); Neutrophil % 81.5 % (42-75.0); Platelet Count 289 K/mm3 (150-450); Red Blood Count 3.48 M/mm3 (4.2-5.4); White Blood Count 14.8 K/mm3 (4.0-10.5)
[2017-06-24 06:05] LABS: Anion Gap 15.6 mmol/L (6.8-13.8); BUN/Creatinine Ratio 7.7 (9.0-21.6); Carbon Dioxide 26.8 mmol/L (24-32.6); Chol/HDL Risk Ratio 4.3 mg/dL (3.3-4.4); Estimated Creat Clear 45.2; Potassium 3.4 mmol/L (3.4-4.6)
--- NOTE | 2017-06-24 06:10 | PN ---
Subjective - Date and Time Seen Date: 06/24/17 Time: 05:41 Subjective Narrative: Patient seen today in bed AOX3 no acute distress, she denies dizziness, headaches, nausea. pt stated she feel like she have more clarity and can complete her thought process. Objective - Review of Systems Generalized/Overall Review: Reports: No Symptoms Reported EENTM: Reports: No Symptoms Reported Respiratory: Reports: No Symptoms Reported Cardiac: Reports: No Symptoms Reported Abdominal: Reports: No Symptoms Reported Genitourinary Symptoms: Reports: No Symptoms Reported Musculoskeletal Complaints: Reports: No Symptoms Reported Neurological: Reports: No Symptoms Reported Skin: Reports: No Symptoms Reported - Vitals Vitals: Last Vital Signs Temp 37.0 C 06/24/17 02:00 Pulse 87 06/24/17 05:00 Resp 14 06/24/17 02:00 BP 141/63 06/24/17 02:00 Pulse Ox 94 06/24/17 02:00 - Abnormal Lab Findings Abnormal Lab Findings: Abnormal Lab Results 06/23/17 Range/Units 21:58 Sodium 127 L (132-142) mmol/L Plasma Sodium 127 L (130-142) mmol/L Chloride 89 L (97-106) mmol/L TSH 0.336 L (0.358-3.74) uIU/mL - Exam Constitutional: Present: Alert, Oriented x3, Cooperative ENT Exam: Present: normal ENT inspection, hearing grossly normal Neck: Present: full range of motion Respiratory: Present: chest non-tender, lungs clear, normal breath sounds, no respiratory distress Cardiovascular/Chest: Present: normal peripheral pulses, regular rate, rhythm, no chest tenderness, no edema Abdomen: Present: Normal bowel sounds, soft, nontender, nondistended, no rebound tenderness /Rectal: Present: Exam deferred Extremity: Present: normal range of motion, non-tender, normal inspection, lower extremity edema Skin Exam: Present: normal color, warm/dry Lymphatic: Present: no adenopathy Neurologic: Present: oriented x 3 Appearance: Present: appropriate appearance, appropriate insight Eye contact: Present: cooperative, good eye contact Assessment/Plan Plan Narrative: Hyponatremia- probable pseudohyponatremia vs SIADH- gradually improving On adm Na+ level 118---->127, pt stated she no longer feels dizzy Her urine remain clear without color pt with reports of pitting edema to BLLE Urine specific gravity < 1.005, pt with copious amount of urine Free Fluid restriction and monitor sodium Q4hr Continue with neuro-checks, mag and phos stable Lipid panel pending Hypochloremia- gradually improving On adm chl 80--->89 Fractured 5th finger pt stated she fell and might have injured her finger at the time. Seen on X-ray hand: Acute mildly displaced oblique fracture 5th proximal phalanx Splint applied in ER, Consult ortho Syncope with dizziness - Resolved likely due to hyponatremia continue to monitor and safety measures while hospitalized UTI_ pt stated she is currently been treated with macrobid and have 5 doses remain. she uses oral vancomycin due to chance of c-diff while on macrobid on adm WBC 14.2, afebrile continue with home antibiotic C-diff- stable no loose stool May continue with vancomycin while taking macrobid. Chronic conditions stable and continue with home medications ADHD GERD Code status: Full VTE ppx: ambulate and scd GI ppx: pepcid Time 15 minutes - Problems/Diagnosis (1) Fracture, finger Problem: Acute Qualifiers: Encounter type: initial encounter Finger: little finger Fracture type: closed Phalanx: proximal Fracture alignment: nondisplaced Laterality: right Qualified Code(s): S62.646A - Nondisplaced fracture of proximal phalanx of right little finger, initial encounter for closed fracture (2) Hyponatremia Problem: Acute (3) Syncope and collapse Problem: Acute (4) Clostridium difficile colitis Problem: Acute (5) UTI (urinary tract infection) Problem: Acute (6) ADHD Problem: Acute (7) Hypochloremia Problem: Acute
[2017-06-24] MEDS: SUCRALFATE 1 G TABLET PO SCH ×3 (07:35→16:53)
[2017-06-24] MEDS ORDERED: AMPHETAMINE PO SCH (09:00)
[2017-06-24] MEDS ORDERED: [UNRECOGNIZED DRUG - OTHER] PO SCH (09:00)
[2017-06-24] MEDS ORDERED: DEXTROAMPHETAMINE PO SCH (09:00)
[2017-06-24] MEDS ORDERED: FLU VACC QS2017-18(6MOS UP)/PF 60 MCG/0.5 ML SYRINGE IM ONE (09:00)
[2017-06-24] MEDS ORDERED: FAMOTIDINE 20 MG TABLET PO SCH (09:00)
[2017-06-24] MEDS ORDERED: FOLIC AC PO SCH (09:00)
[2017-06-24 10:41] LABS: Chloride 96 mmol/L (97-106); Sodium 133 mmol/L (132-142)
--- NOTE | 2017-06-24 13:58 | DS ---
(1) Hypo-osmolality and hyponatremia Problem: Acute Description of Stay: DATE OF ADMISSION: 06/23/2017 DATE OF DISCHARGE: 06/24/2017. DIAGNOSTICS: NONE DISCHARGE SUMMARY: Arline Norman is a 67-year-old WF with a history of ADHD, chronic back pain, presumed osteoporosis, anxiety and depression, S/P C. difficile diarrhea with fecal transplant in 10/30 who came into the ER for evaluation of her syncopal episode w/ LOC after having a fall and breaking her RT little finger. Patient is a poor historian. She was started on nitrofurantoin for a presumed UTI by her PCP. Evaluation in the ER : WBC 14.2 and Na+ 118, Cl- 80, displaced oblique fracture fifth proximal phalanx RT little finger. Patient admitted for further care and treatment. Patient admits to extremely poor intake. Initially given IV fluids later placed on fluid restriction with improvement in Na+133, Cl- 96. Patient was able to ambulate without any problems. There is no history of confusion, change in mental status etc. Due to due to her low BMI of 22.4, consider other meds for ADHD and tapering off Adderall due to significant weight loss. Though patient initially met inpatient criteria, she is being discharged next day as she recovered more quickly than expected. Procedures Performed: none Discharge Disposition: Home self care Disposition: Home self-care Condition: Undetermined Discharge Diet: General/regular food, High Fiber - with supplements like ensure etc Referrals: Mervat Summers, [employer] WORK[employer] ASSISTANT [Primary Care Provider] - Problem Oriented Discharge Instructions to Patient/Family: Hyponatremia, Easy- to-Read, Vertigo, [id number] Additional Patient Instructions (free text): Follow up with Mervat Summers on July 02 at 9:30. Follow up with orthopedics on June 30 at 10:15. Take latuda at bedtime with a 400 calorie snack. Talk to your psychiatrist regarding getting off Adderall due to severe weight loss, falls and hyponatremia. All meds have to be taken 1 hr before and 3 hrs after carafate to be absorbed. Eat 6 oz of yogurt twice a day. Use a cane to prevent falls / make sure hallways are well lit. Can stop nitrofurantoin/macrobid. Can stop vancomycin if patient was advised to take it only when on antibiotics. Complete Home Medications List: Complete Home Medication List: Baclofen 5 - 20 mg PO HS 06/23/17 Cholecalciferol (Vitamin D3) [Vitamin D3] 10,000 unit PO Q7D 06/23/17 Dextroamphetamine/Amphetamine [Amphetamine Salts] 30 mg PO BID@0700,1200 Iron Heme Polypeptide/Folic AC [Proferrin-Forte Tablet] 180 mg PO DAILY Sucralfate [Carafate] 1 gm PO ACHS 06/23/17 Lurasidone HCl [Latuda] 40 mg PO DAILY 06/24/17 Vancomycin HCl [Vancomycin] 5 ml PO Q6H 06/24/17 traMADol HCL [Tramadol HCl] 50 mg PO PRN PRN 06/24/17
[2017-06-24 19:49] VITALS: BP 138/75
[2017-06-24] MEDS ORDERED: BACLOFEN 10 MG TABLET PO SCH (21:00)
== END 2017-06-24 19:30 | disposition home or self-care (01) | DRG 641 ==
LOC: ER 15:08 → OBSVTOIN 18:24 → MS 18:24 → INTOOBSV 18:24
PROVIDERS: ADMIT Internal Medicine; ATTEND Internal Medicine
PROC: 2W3JX1Z Immobilization of Right Finger using Splint (ICD-10-PCS; principal; 2017-06-23)
DX: E87.1 Hypo-osmolality and hyponatremia (principal); S62.616A Displaced fracture of proximal phalanx of right little finger, initial encounter for closed fracture; W01.0XXA Fall on same level from slipping, tripping and stumbling without subsequent striking against object, initial encounter; Y92.009 Unspecified place in unspecified non-institutional (private) residence as the place of occurrence of the external cause; E87.8 Other disorders of electrolyte and fluid balance, not elsewhere classified; K21.9 Gastro-esophageal reflux disease without esophagitis; Z88.0 Allergy status to penicillin